=== PATIENT | female | born 1995 | race Caucasian/White ===

== ENCOUNTER 2017-02-23 09:14 | Emergency (ER) | payer MEDICAID ==
[2017-02-23] MEDS ORDERED: NS 1,000 ML IV ONE ×2 (09:28→10:45)
[2017-02-23] MEDS ORDERED: ONDANSETRON 4 MG/2 ML VIAL IVP ONE (09:28)
--- NOTE | 2017-02-23 09:32 | UCPHY ---
H & P Patient Type: Established Time Seen by Provider: 02/23/17 09:23 HPI/ROS: Chief Complaint: Nausea vomiting and diarrhea HPI: 22-year-old female began having nausea and vomiting 2 nights ago with some epigastric pain. He has 2 days had persistent vomiting with multiple episodes of watery stools. Has had some persistent nausea vomiting today. Some mild crampy abdominal pain intermittently. No dark black or blood in her stool. No fevers or chills. Last menstrual period was 3 weeks ago was normal. Does not believe she is . Is on oral contraceptives. No urinary symptoms. No fevers or chills. No cough or shortness of breath. No skin rash. ROS: 10 point Review of Systems is negative except as noted in the HPI. PMH: None Medications: None Allergies: No known drug allergies Social History: No smoking, occasional alcohol, no recreational drug use Family History: non-contributory Physical Exam: Gen: Awake, Alert, No Distress HEENT: Nose: no rhinorrhea Eyes: PERRLA, EOMI Mouth: Dry mucosa Neck: Supple, no JVD Chest: nontender, lungs clear to auscultation Heart: S1, S2 normal, no murmur Abd: Soft, mild epigastric tenderness, no right upper quadrant tenderness. No lower abdominal tenderness., no guarding Back: no CVA tenderness, no midline tenderness Ext: no edema, non-tender Skin: no rash Neuro: CN II-XII intact, Sensation grossly intact, Strength 5/5 in bilateral upper and lower extremities - Medical/Surgical History Hx Asthma: No Hx Chronic Respiratory Disease: No Hx Diabetes: No Hx Cardiac Disease: No Hx Renal Disease: No Hx Cirrhosis: No Hx Alcoholism: No Hx HIV/AIDS: No Hx Splenectomy or Spleen Trauma: No Other PMH: DENIES - Family History Significant Family History: No pertinent family hx - Social History Smoking Status: Never smoked Constitutional: Initial Vital Signs Temperature (C) 36.9 C 02/23/17 09:15 Heart Rate 103 H 02/23/17 09:15 Respiratory Rate 16 02/23/17 09:15 Blood Pressure 120/80 02/23/17 09:15 O2 Sat (%) 95 02/23/17 09:15 O2 Delivery Mode Room Air Allergies/Adverse Reactions: No Known Allergies Allergy (Verified 02/10/15 15:59) Home Medications: Medication Instructions Recorded Amoxicillin Trihydrate 500 mg PO Q8 #21 cap 02/10/15 [Amoxicillin 500mg cap] guaiFENesin/CODEINE PHOS 5 ml PO QID #0 udcup 02/10/15 [Robitussin AC] Medical Decision Making - Data Points Laboratory Results: Laboratory Results 02/23/17 09:40 02/23/17 02/23/17 09:40 09:40 Sodium 141 mEq/L mEq/L (134-144) Potassium 4.0 mEq/L mEq/L (3.5-5.2) Chloride 104 mEq/L mEq/L (97-110) Carbon Dioxide 21 mEq/l L mEq/l (22-31) Anion Gap 16 mEq/L mEq/L (8-16) BUN 11 mg/dL mg/dL (7-23) Creatinine 0.7 mg/dL mg/dL (0.6-1.0) Estimated GFR > 60 Glucose 91 mg/dL mg/dL (70-100) Calcium 8.9 mg/dL mg/dL (8.5-10.4) Beta HCG, Qual NEGATIVE Medications Given: Discontinued Medications Sodium Chloride (Ns) 1,000 mls @ 0 mls/hr IV ONCE ONE PRN Reason: Wide Open Stop: 02/23/17 09:29 Last Admin: 02/23/17 09:30 Dose: 1,000 mls Sodium Chloride (Ns) 1,000 mls @ 0 mls/hr IV ONCE ONE PRN Reason: Wide Open Stop: 02/23/17 10:46 Last Admin: 02/23/17 10:55 Dose: 1,000 mls Ondansetron HCl (Zofran) 4 mg IVP EDNOW ONE Stop: 02/23/17 09:29 Last Admin: 02/23/17 10:03 Dose: 4 mg Ondansetron HCl (Zofran Odt 4 Mg Prepack#2) 1 btl TAKEHOME EDNOW ONE Stop: 02/23/17 11:51 Last Admin: 02/23/17 11:57 Dose: 1 btl Departure - Departure Disposition: Home, Routine, Self-Care Clinical Impression: Gastroenteritis, Dehydration Condition: Good Instructions: Ondansetron (By mouth), Gastroenteritis (ED), Acute Nausea and Vomiting (ED) Referrals: NONE *PRIMARY CARE P,. [Primary Care Provider] - As per Instructions Stand Alone Forms: Work Excuse - PQRS PQRS Measurement: NA
[2017-02-23 10:02] VITALS: RESP 16; TEMP 98.4
[2017-02-23 10:09] LABS: ANION GAP 16 mEq/L (8-16); CALCIUM 8.9 mg/dL (8.5-10.4); CARBON DIOXIDE 21 mEq/l (22-31); CHLORIDE 104 mEq/L (97-110); CREATININE 0.7 mg/dL (0.6-1.0); GLOMERULAR FILTRATION RATE > 60; GLUCOSE 91 mg/dL (70-100); SODIUM 141 mEq/L (134-144)
[2017-02-23] MEDS ORDERED: ONDANSETRON 4MG PREPACK#2 BTL TAKEHOME ONE (11:50)
[2017-02-23 12:15] VITALS: BP 108/86; PULSE 99; O2SAT 96
== END 2017-02-23 12:14 | disposition home or self-care (01) ==
LOC: CED 09:14
DX: K52.9 Noninfective gastroenteritis and colitis, unspecified (principal); E86.0 Dehydration
CPT/HCPCS: 80048-PO; 84703-PO; 96361-PO; 96374-PO; 99214-PO; G0463-PO; J2405